=== PATIENT | female | born 1950 | race Asian ===

== ENCOUNTER 2022-01-17 04:36 | Emergency (ER) | payer OTHER ==
[~2022-01-17] VITALS: Ht 157.5 cm; Wt 71.1 kg
[2022-01-17] MEDS ORDERED: ACETAMINOPHEN 1000 MG/ISO-OSM 100 ML IV ONE (04:45)
[2022-01-17] MEDS ORDERED: CefTRIAXone 1 GM/DEXTROSE 50 ML IV ONE (04:45)
[2022-01-17 04:51] LABS: BASOPHILS % (AUTO) 0.4 % (0.0-2.0); EOSINOPHILS % (AUTO) 0.1 % (1.0-6.0); HEMATOCRIT 32.1 % (36-46); HEMOGLOBIN 9.9 g/dL (12.0-16.0); LYMPHOCYTES # (AUTO) 0.6 K/uL (1.0-4.8); LYMPHOCYTES % (AUTO) 7.2 % (22.0-44.0); MEAN CORPUSCULAR HEMOGLOBIN 22.4 pg (26.0-34.0); MEAN CORPUSCULAR HGB CONC 30.7 G/dL (31.0-37.0); MEAN CORPUSCULAR VOLUME 73 fL (80-100); MONOCYTES # (AUTO) 0.4 K/uL (0.1-1.0); MONOCYTES % (AUTO) 4.8 % (2.0-9.0); NEUTROPHILS # (AUTO) 7.6 K/uL (1.8-7.7); PLATELET COUNT (AUTO) 268 K/uL (150-450); RED BLOOD CELL COUNT(AUTO) 4.41 MIL/uL (4.00-5.20); RED CELL DISTRIBUTION WIDTH 14.7 % (11.5-14.5)
[2022-01-17 04:53] LABS: NEUTROPHILS % (AUTO) 87.5 % (40.0-70.0)
[2022-01-17 04:55] LABS: CALCIUM, TOTAL 9.2 mg/dL (8.8-10.5); CREATININE 1.1 mg/dL (0.60-1.30); POTASSIUM 3.4 mmol/L (3.5-5.1)
[2022-01-17] MEDS ORDERED: IOHEXOL 350 MG/ML 100 ML VIAL ONE (04:55)
[2022-01-17] MEDS ORDERED: SODIUM CHLORIDE 0.9% 100 ML ONE (04:55)
[2022-01-17 05:00] LABS: PROTHROMBIN TIME 10.3 SEC (9.4-11.6)
[2022-01-17 05:01] LABS: BILIRUBIN,TOTAL 0.9 mg/dL (0.1-1.0); TOTAL PROTEIN, SERUM 7.6 g/dL (6.4-8.2)
[2022-01-17] MEDS ORDERED: OSEL75CA17 PO (05:28)
[2022-01-17] MEDS ORDERED: LOSA1TAB37 PO (05:28)
[2022-01-17] MEDS ORDERED: ATOR10TA69 PO (05:28)
[2022-01-17] MEDS ORDERED: BENZ100C68 PO (05:28)
[2022-01-17] MEDS ORDERED: LEVOFLOXACIN 750 MG/D5% WATER 150 ML IV ONE (05:30)
[2022-01-17] MEDS ORDERED: SODIUM CHLORIDE 0.9% 2,150 ML IV ONE (05:30)
[2022-01-17 05:47] LABS: COVID AG,FIA SOURCE NASAL SWAB
[2022-01-17 05:50] LABS: APPEARANCE,URINE HAZY (CLEAR); BILIRUBIN,URINE NEGATIVE (NEGATIVE); GLUCOSE, URINE (UA) NEGATIVE (NEGATIVE); KETONES,URINE NEGATIVE (NEGATIVE); LEUKOCYTE ESTERASE ,URINE LARGE (NEGATIVE); NITRATE,URINE POSITIVE (NEGATIVE); OCCULT BLOOD,URINE MODERATE (NEGATIVE); PH,URINE 5.5 (5.0-8.0); PROTEIN,URINE 30-70 mg/dL (NEGATIVE); SPECIFIC GRAVITIY, URINE 1.012 (1.003-1.030); UROBILINOGEN,URINE <=1.0 mg/dL (<=1.0)
[2022-01-17 05:57] LABS: AMPHET/METH SCREEN,URINE NEGATIVE (NEGATIVE); BARBITURATE SCREEN, URINE NEGATIVE (NEGATIVE); BENZODIAZEPINES SCREEN,URINE NEGATIVE (NEGATIVE); CANNABINOID SCREEN,URINE NEGATIVE (NEGATIVE); COCAINE SCREEN,URINE NEGATIVE (NEGATIVE); METHADONE SCREEN, URINE NEGATIVE (NEGATIVE); OPIATE SCREEN,URINE NEGATIVE (NEGATIVE)
[2022-01-17 05:59] LABS: BACTERIA,URINE Many /HPF (None Seen); SQUAMOUS EPITHELIAL CELL,UR Few /LPF (None Seen)
[2022-01-17 06:01] LABS: PHENCYCLIDINE SCREEN,URINE NEGATIVE (NEGATIVE)
[2022-01-17 06:08] LABS: INFLUENZA TYPE A NEGATIVE FOR TYPE A (NEGATIVE); INFLUENZA TYPE B NEGATIVE FOR TYPE B (NEGATIVE)
[2022-01-17 09:09] VITALS: BP 115/65
[2022-01-17] MEDS ORDERED: ALLO100T PO (13:19)
== END 2022-01-17 12:00 | disposition short-term general hospital (02) ==
LOC: EMS 04:37
DX: A41.9 Sepsis, unspecified organism (principal); N39.0 Urinary tract infection, site not specified; R00.0 Tachycardia, unspecified; Z20.822 Contact with and (suspected) exposure to COVID-19
CPT/HCPCS: 99291; 70496; 96365; 71045; 92610; 87426; 80053; 83605; 84484; 85025; 85610; 85730; 87040; 87205; 87804; 86850; 86900; 86901; 36415; 87086; 87077; 87186; 70498; 82948; 93005; 96368; 80307; 70450; 81001; J1956; Q9967; J7030; J7050; J0131